=== PATIENT | female | born 1985 | race Caucasian/White ===

== ENCOUNTER → 2017-11-19 | Outpatient (CLI) | payer MEDICAID | END | disposition home or self-care (01) | LOC: RAD 14:18 | DX: Z32.01 Encounter for pregnancy test, result positive (principal) | CPT/HCPCS: 71046 ==

== ENCOUNTER 2018-01-28 10:25 | Inpatient (IN) | payer MEDICAID ==
[2018-01-28] MEDS ORDERED: METHYLERGONOVINE 0.2 MG INJ IM (11:30)
[2018-01-28] MEDS ORDERED: MISOPROSTOL 200 MCG TAB PR (11:30)
[2018-01-28] MEDS ORDERED: CARBOPROST 250 MCG INJ IM (11:30)
[2018-01-28] MEDS ORDERED: BUTORPHANOL 1 MG INJ IV (11:30)
[2018-01-28] MEDS ORDERED: IBUPROFEN 600 MG TAB PO (11:30)
[2018-01-28] MEDS ORDERED: LIDOCAINE 1% (MPF) 30 ML INJ INJ (11:30)
[2018-01-28] MEDS ORDERED: BUTORPHANOL 2 MG INJ IV (11:30)
[2018-01-28] MEDS ORDERED: AMPICILLIN 2 GM/NS (PMX) 100 ML (11:33)
[2018-01-28] MEDS: LACTATED RINGER'S 1,000 ML IV ×3 (11:35→21:36)
[2018-01-28 11:51] LABS: ADD MAN DIFF? NO
[2018-01-28 12:00] LABS: BASOPHILS % 0.3 % (0.0-2.0); EOSINOPHILS # 0.1 10^3/ul (0.0-0.5); EOSINOPHILS % 0.9 % (0.0-7.0); HEMATOCRIT 34.9 % (37.0-47.0); HEMOGLOBIN 11.5 g/dl (12.0-16.0); LYMPHOCYTES # 1.3 10^3/ul (0.8-2.9); LYMPHOCYTES % 17.1 % (15.0-51.0); MEAN CORPUSCULAR HEMOGLOBIN 31.1 pg (29.0-33.0); MEAN CORPUSCULAR VOLUME 94.3 fl (82.0-101.0); MEAN PLATELET VOLUME 10.5 fl (7.4-10.4); MONOCYTE # 0.8 10^3/ul (0.3-0.9); MONOCYTES % 10.2 % (0.0-11.0); NEUTROPHIL # 5.5 10^3/ul (1.6-7.5); NEUTROPHILS % 70.1 % (39.0-77.0); PLATELET COUNT 271 10^3/UL (140-415); RED CELL DISTRIBUTION WIDTH 15.8 % (11.5-14.5)
[2018-01-28 12:00] LABS: WHITE BLOOD COUNT 7.8 10^3/ul (4.8-10.8)
[2018-01-28 12:24] LABS: INR 0.99; PROTIME 13.2 Sec (11.9-14.9)
[2018-01-28 12:25] LABS: PARTIAL THROMBOPLASTIN TIME 27.4 Sec (25.0-35.0)
[2018-01-28] MEDS: AMPICILLIN 2 GM/NS (PMX) 100 ML IV (12:29)
[2018-01-28] MEDS ORDERED: OXYTOCIN 30 UNITS/LR 500 ML IV (12:30)
[2018-01-28] MEDS: OXYTOCIN 30 UNITS/LR 500 ML IV (12:43)
[2018-01-28 15:32] LABS: RAPID PLASMA REAGIN NONREACTIVE (NR)
[2018-01-28] MEDS ORDERED: NALOXONE (0.4 MG/ML) INJ IV (16:00)
[2018-01-28] MEDS ORDERED: ONDANSETRON 4 MG INJ IV (16:00)
[2018-01-28] MEDS: AMPICILLIN 1 GM/NS (PMX) 50 ML IV ×3 (16:00→22:24)
[2018-01-28] MEDS ORDERED: EPHEDrine SULFATE 50 MG/5 ML SYG IV (16:00)
[2018-01-28] MEDS ORDERED: DIPHENHYDRAMINE 50 MG INJ IV (16:00)
[2018-01-29] MEDS: LACTATED RINGER'S 1,000 ML IV (01:11)
[2018-01-29] MEDS: FENTAnyl 2MCG/ML-ROPIV 0.2% 100 ML BAG EPI (01:29)
[2018-01-29] MEDS: AMPICILLIN 1 GM/NS (PMX) 50 ML IV (02:49)
[2018-01-29] MEDS: OXYTOCIN 30 UNITS/LR 500 ML IV ×2 (04:55→05:58)
[2018-01-29] MEDS ORDERED: MISOPROSTOL 200 MCG TAB PR (07:00)
[2018-01-29] MEDS ORDERED: BENZOCAINE 20% 56 ML SPRAY TOP (07:00)
[2018-01-29] MEDS ORDERED: WITCH HAZEL/GLYCERIN PAD PR (07:00)
[2018-01-29] MEDS ORDERED: OXYTOCIN 30 UNITS/LR 500 ML IV (07:00)
[2018-01-29] MEDS ORDERED: CARBOPROST 250 MCG INJ IM (07:00)
[2018-01-29] MEDS ORDERED: PROMETHAZINE/DM (CUP) PO (07:00)
[2018-01-29] MEDS ORDERED: METHYLERGONOVINE 0.2 MG INJ IM (07:00)
[2018-01-29] MEDS: IBUPROFEN 600 MG TAB PO ×7 (07:00→23:54)
[2018-01-29] MEDS ORDERED: HYDROCODONE/APAP (5/325) TAB PO (07:00)
[2018-01-29] MEDS ORDERED: DIBUCAINE 1% 30 GM OINT PR (07:00)
[2018-01-29] MEDS: LACTATED RINGER'S 1,000 ML IV* (10:03)
[2018-01-29] MEDS: PRENATAL VITAMIN PO (10:17)
[2018-01-29] MEDS: SENNA/DOCUSATE NA (8.6MG/50MG) TAB PO ×2 (10:18→23:54)
[2018-01-29] MEDS: LANOLIN 7 GM TUBE TOP (10:18)
[2018-01-29] MEDS: CEPHALEXIN 500 MG CAP PO ×2 (18:43→23:54)
[2018-01-30] MEDS: CEPHALEXIN 500 MG CAP PO ×3 (05:54→17:38)
[2018-01-30] MEDS: IBUPROFEN 600 MG TAB PO ×7 (05:54→17:41)
[2018-01-30 07:03] LABS: ADD MAN DIFF? NO
[2018-01-30 07:12] LABS: BASOPHILS % 0.3 % (0.0-2.0); EOSINOPHILS # 0.2 10^3/ul (0.0-0.5); EOSINOPHILS % 1.4 % (0.0-7.0); HEMATOCRIT 30.7 % (37.0-47.0); HEMOGLOBIN 9.9 g/dl (12.0-16.0); LYMPHOCYTES # 2.5 10^3/ul (0.8-2.9); LYMPHOCYTES % 18.3 % (15.0-51.0); MEAN CORPUSCULAR HEMOGLOBIN 30.7 pg (29.0-33.0); MEAN CORPUSCULAR HGB CONC 32.2 g/dl (32.0-37.0); MEAN PLATELET VOLUME 10.4 fl (7.4-10.4); MONOCYTE # 1.2 10^3/ul (0.3-0.9); MONOCYTES % 8.6 % (0.0-11.0); NEUTROPHIL # 9.8 10^3/ul (1.6-7.5); NEUTROPHILS % 70.7 % (39.0-77.0); PLATELET COUNT 249 10^3/UL (140-415); RED BLOOD COUNT 3.23 10^6/ul (4.20-5.40); RED CELL DISTRIBUTION WIDTH 15.9 % (11.5-14.5)
[2018-01-30 07:12] LABS: WHITE BLOOD COUNT 13.8 10^3/ul (4.8-10.8)
[2018-01-30] MEDS: PRENATAL VITAMIN PO (10:10)
[2018-01-30] MEDS: SENNA/DOCUSATE NA (8.6MG/50MG) TAB PO ×2 (10:10→20:33)
[2018-01-31] MEDS: CEPHALEXIN 500 MG CAP PO ×3 (01:11→11:44)
[2018-01-31] MEDS: ACETAMINOPHEN 325 MG TAB PO (01:24)
[2018-01-31] MEDS: IBUPROFEN 600 MG TAB PO ×6 (06:00→11:45)
[2018-01-31] MEDS: SENNA/DOCUSATE NA (8.6MG/50MG) TAB PO (09:00)
[2018-01-31] MEDS: PRENATAL VITAMIN PO (09:02)
[2018-01-31] MEDS: DIPHTH/TET/ACEL PERTUSS (ADULT) 0.5 ML VIAL IM* (09:04)
== END 2018-01-31 13:58 | disposition home or self-care (01) | DRG 775 ==
LOC: PP1 01-29 06:52 → L-D 10:25
PROVIDERS: Obstetrics & Gynecology
PROC: 10E0XZZ Delivery of Products of Conception, External Approach (ICD-10-PCS; principal; 2018-01-29)
DX: O36.63X0 Maternal care for excessive fetal growth, third trimester, not applicable or unspecified (principal); O99.824 Streptococcus B carrier state complicating childbirth; O99.214 Obesity complicating childbirth; E66.9 Obesity, unspecified; Z68.38 Body mass index [BMI] 38.0-38.9, adult; Z37.0 Single live birth; Z3A.39 39 weeks gestation of pregnancy
CPT/HCPCS: 62319; 76815; 85025; 85610; 85730; 86592; 86850; 86900; 86901